=== PATIENT | male | born 1955 | race Caucasian/White ===

== ENCOUNTER 2018-07-17 19:30 | Outpatient (CLI) | payer OTHER | END 2018-07-17 19:31 | disposition home or self-care (01) | LOC: SLEEPLAB 19:30 | PROVIDERS: ATTEND Otolaryngology Plastic Surgery within the Head & Neck | DX: G47.33 Obstructive sleep apnea (adult) (pediatric) (principal); R53.83 Other fatigue; R06.81 Apnea, not elsewhere classified; R06.83 Snoring; G47.10 Hypersomnia, unspecified; G47.00 Insomnia, unspecified; I10 Essential (primary) hypertension; E11.9 Type 2 diabetes mellitus without complications | CPT/HCPCS: 95811 ==

== ENCOUNTER 2019-07-25 17:12 | Inpatient (IN) | payer BC ==
[2019-07-25] MEDS ORDERED: Adacel (T-DAP) 0.5 ML SYRINGE ONE (17:52)
[2019-07-25 17:58] LABS: #Eosinphils 0.1 thou/uL (0.0-0.7); #Lymphocytes 0.4 thou/uL (1.20-3.40); #Monocytes 0.5 thou/uL (0.11-0.59); #Neutrophils 7.6 thou/uL (1.40-6.50); %Basophils 0.5 % (0.0-1.0); %Eosinophils 0.7 % (0.0-10.0); %Lymphocytes 4.3 % (21.0-51.0); %Monocytes 6.3 % (0.0-10.0); %Neutrophils 88.3 % (42.0-75.0); Mean Corpuscular HGB CONC 32.8 g/dL (32.0-36.0); Mean Corpuscular Hemoglobin 30.7 pg (27.0-31.0); Mean Corpuscular Volume 93.6 fL (78.0-98.0); RBC Distribution Width 11.4 % (11.5-14.5); Red Blood Cell (RBC) Count 4.88 mill/uL (4.70-6.10); White Blood Cell (WBC) Count 8.6 thou/uL (4.8-10.8)
[2019-07-25 18:05] LABS: INR-International Normal Ratio 1.1; PTT 20.9 SEC (22.9-36.1); Prothrombin Time 13.7 SEC (12.0-14.7)
--- NOTE | 2019-07-25 18:09 | CT ---
CT BRAIN WITHOUT CONTRAST: HISTORY: Fall, headache. Possible syncope FINDINGS: No evidence of acute infarct, hemorrhage, midline shift or abnormal extra-axial fluid collections is seen. The ventricular size is appropriate and the basilar cisterns are patent. The bony calvarium is intact. There is mucosal disease in the paranasal sinuses.. There is a fracture involving the left nasal bone. IMPRESSION: No CT evidence of acute intracranial process.
[2019-07-25 18:14] LABS: ALT (SGPT) 20 U/L (8-55); AST (SGOT) 29 U/L (5-34); Albumin 4.3 g/dL (3.4-4.8); Alkaline Phosphatase 47 U/L (40-110); Anion Gap 16 mmol/L (10-20); BUN (Urea Nitrogen) 14 mg/dL (8.4-25.7); Bilirubin, Total 0.5 mg/dL (0.2-1.2); CK (CPK) 150 U/L (30-200); Calc. Creatinine Clearance 0 mL/min (70-130); Carbon Dioxide 25 mmol/L (23-31); Chloride 102 mmol/L (98-107); Estimated GFR-MDRD 64; Globulin 2.7 g/dL (2.4-3.5); Glucose 160 mg/dL (80-115); Potassium 4.7 mmol/L (3.5-5.1); Sodium 138 mmol/L (136-145)
[2019-07-25 18:16] LABS: Mean Platelet Volume 8.8 fL (7.4-10.4); Platelet Count 130 thou/uL (130-400); Platelet Morphology Comment Appears Adequate; RBC Morphology Normal
--- NOTE | 2019-07-25 18:22 | CT ---
CT CERVICAL SPINE WITH CORONAL AND SAGITTAL REFORMATIONS AND NO IV CONTRAST: HISTORY: Fall, neck pain FINDINGS: Multilevel degenerative changes are present. No fracture, subluxation or facet malalignment is identified. No prevertebral soft tissue swelling is apparent. The visualized lung apices are unremarkable. IMPRESSION: No CT evidence for fracture or traumatic subluxation.
--- NOTE | 2019-07-25 18:27 | CT ---
CT FACIAL BONES WITH CORONAL AND SAGITTAL REFORMATIONS: 07/25/19 HISTORY: Trauma. Facial pain. FINDINGS/IMPRESSION: There are minimally displaced fractures involving the nasal bones in the perpendicular plate of the e thmoid. The remainder of the facial bones are otherwise intact. No temporomandibular dislocation is seen. There is mucosal disease in the paranasal sinuses and a tiny amount of fluid in the left maxillary si nus. There is soft tissue air anterior to the anterior wall of the left maxillary sinus. POS: OFF
--- NOTE | 2019-07-25 18:33 | RAD ---
XR Chest 1 View Portable HISTORY: Syncope COMPARISON: None FINDINGS: The heart size is normal. The lungs are well expanded without focal areas of consolidation, pneumothorax or pleural effusions. IMPRESSION: No radiographic evidence of acute cardiopulmonary process.
[2019-07-25 18:38] LABS: Bacteria/HPF None Seen HPF (None Seen); Bilirubin Negative (Negative); Blood, Urine 1+ (Negative); Clarity Clear (Clear); Glucose, Urine (Dipstick) Normal (Negative); Leukocyte Negative Leu/uL (Negative); Nitrite Negative (Negative); Protein, Urine (Dipstick) 20 mg/dL (Neg-Trace); RBC/HPF 0-3 HPF (0-3); Squamous Epithelial 0-3 HPF (0-3); Urobilinogen Normal mg/dL (Less than 2); WBC/HPF 0-3 HPF (0-3)
[2019-07-25] MEDS ORDERED: Sodium Chloride 0.9% 100 ML ONE (19:42)
[2019-07-25] MEDS ORDERED: Cefepime 2 GM VIAL ONE (19:42)
[2019-07-25] MEDS ORDERED: Dextrose 5% in Water 1,000 ML IV PRN (21:12)
[2019-07-25] MEDS ORDERED: HumaLOG 300 UNITS/3 ML VIAL SC PRN (21:12)
[2019-07-25] MEDS ORDERED: Dextrose 50% Abboject 50 ML SYRINGE SLOW IVP PRN (21:12)
[2019-07-25 21:15] LABS: Lactic Acid 1.6 mmol/L (0.5-2.2)
[2019-07-25 21:25] LABS: Troponin I Less than 0.010 ng/mL (< 0.028)
--- NOTE | 2019-07-25 22:25 | PDOC.EVN ---
Event Note - Event Note Event Note: [id number] HP
[2019-07-25] MEDS ORDERED: Ondansetron PF 4 MG/2 ML Vial IVP PRN (22:31)
[2019-07-25] MEDS ORDERED: Ondansetron ODT 4 MG TAB SL PRN (22:31)
[2019-07-25 23:43] VITALS: BMI 29.0
[2019-07-25] MEDS ORDERED: Acetaminophen 650 MG Suppository PR PRN (23:51)
[2019-07-26 00:26] LABS: Troponin I 0.043 ng/mL (< 0.028)
[2019-07-26] MEDS: Acetaminophen 325 MG TAB PO PRN ×4 (00:42→19:28)
[2019-07-26] MEDS: Sodium Chloride 0.9% 1,000 ML IV SCH ×2 (00:43→16:59)
--- NOTE | 2019-07-26 03:15 | HP ---
CHIEF COMPLAINT: Suspected fall. HISTORY OF PRESENT ILLNESS: Mr. Gordon is a 63-year-old male with past medical history of diabetes mellitus, type 2; hypertension; and hyperlipidemia, presented to the emergency room via EMS for evaluation of suspected fall and possible syncope. The patient was at earlier today. He felt sick. He drove back home. After that, he does not remember what happened. EMS reported upon arrival to patient's residence, they found blood in the driveway, suspected that the patient had fallen, syncopized, then crawled into the house. Family reports that she was in her bedroom upstairs, when the patient returned home and noted that the patient was uncoherent after collapsed episode. The patient recalls no recollection of the fall. The patient presents with abrasion on the forehead, cheek, hands, obvious nasal bleeding per EMS. Denies abdominal pain. Workup in the emergency room including imaging studies; the patient was found to have nasal bone fracture. Otherwise, no acute fracture as per ED physician. The patient is being admitted to hospital for further management. PAST MEDICAL HISTORY: 1. Diabetes mellitus, type 2. 2. Hyperlipidemia. 3. Hypertension. PAST SURGICAL HISTORY: None reported. FAMILY HISTORY: Reviewed and noncontributory. SOCIAL HISTORY: The patient currently uses tobacco, smokes cigars, denies alcohol drinking. HOME MEDICATIONS: Please see home medication reconciliation form for updated medications. ALLERGIES: NO KNOWN ALLERGIES. PHYSICAL EXAMINATION: GENERAL: The patient is awake, alert, in moderate distress. VITAL SIGNS: Blood pressure 132/78, pulse is 115, respiratory rate is 20, and temperature is 100.4. HEAD AND NECK: Normocephalic. Nasal deformity. Neck is supple. No JVD. CHEST: Fair bilateral air entry. HEART: S1, S2. Regular. ABDOMEN: Soft, nontender. Bowel sounds present. NEUROLOGIC: Awake, alert, oriented x3. PSYCH: Normal mood. EXTREMITIES: No clubbing, no cyanosis. ENT: Dried blood noted to bilateral nares, nasal deformity. There are abrasions, facial, around the eyes and abrasions, lower extremity. LABORATORY DATA: EKG shows sinus tachycardia. IMAGING DATA: Facial bone CT showed displaced fracture noted to the nasal bones. Tiny fluid in the left maxillary sinus. Otherwise, imaging studies including CT of the cervical spine and CT of the neck; no acute finding. ASSESSMENT: 1. Fall, syncope? 2. Nasal bone fracture. 3. Syncope? 4. Fever, etiology not clear at this point. 5. Diabetes mellitus. 6. Hypertension. 7. Hyperlipidemia. PLAN: 1. Admit. 2. Telemetry monitoring. 3. Frequent neuro checks. 4. Septic workup including blood cultures. 5. Empiric IV antibiotics for now. 6. 2D echo. 7. MRI of the brain. 8. Consider Neurology consultation and Cardiology consultation in a.m. for evaluation and further recommendations. 9. Reconcile home medications. 10. DVT prophylaxis as appropriate. 11. Expected length of stay, 2 midnights or more. Job ID: [id number]
[2019-07-26 04:56] LABS: Cardiac Risk 2.2 (Less than 4.5)
--- NOTE | 2019-07-26 10:22 | MRI ---
EXAM: MRI Brain WO Con PROVIDED CLINICAL HISTORY: Dizziness/syncope COMPARISON: None FINDINGS: The ventricular system appears normal in size and morphology. There is no evidence for intracranial h emorrhage or mass effect. There is no evidence for restricted diffusion to suggest recent infarction. Scattered punctate areas of FLAIR and T2 hyperintensity involve the cerebral white matter likely reflecting chronic microvascular ischemic change. Appropriate flow voids are seen within the major intracranial vessels. There is partial opacification of the ethmoid air cells, left maxillary sinus and mucosal thickening involving sphenoid, frontal and right maxillary sinuses. The extracranial soft tissues and calvarial marrow signal appear otherwi se normal. IMPRESSION: No evidence for an acute intracranial abnormality.
[2019-07-26] MEDS: Cefepime 1 GM in Sodium Chloride 0.9% 100 ML IVPB SCH ×2 (10:32→20:34)
--- NOTE | 2019-07-26 11:13 | CON ---
DATE OF CONSULTATION: 07/26/2019 CONSULTING PHYSICIAN: Hospitalist Service. IMPRESSION: Syncopal episode, possibly secondary to an unwitnessed seizure versus cardiac arrhythmia. PLAN: Follow up with Cardiology for an event monitor. HISTORY OF PRESENT ILLNESS: Mr. Gordon is a 63-year-old male with past history of diabetes. He is followed by Dr. Horvath. He had driven home and gotten out of the car, he apparently lost consciousness suddenly without any warning. He fell on the pavement of his driveway. About 10 minutes later, his found him in the bedroom, he was a bit incoherent, he was covered in blood, he could not recall what had happened. She decided to call EMS, and they came in and picked him up. He was brought to the emergency room for evaluation. He had a CT of the brain, which was unremarkable. He had an MRI done this morning, which has not been read out, but appears normal to me. He denies any past history of seizures or cardiac arrhythmia. He does not recall any chest pain, chest pressure, or palpitations. He did not have any focal neurologic symptoms associated with the episode. He had been sick with upper respiratory illness prior to the onset. He had gone without sleep the night before secondary to coughing. He was taking some type of vuio-ibx-tpouwdy cold medication. He notes that he did not have his typical symptoms of hypoglycemia prior to the onset. PAST HISTORY: Diabetes. ALLERGIES: NONE. SOCIAL HISTORY: No tobacco or illicit drug use. FAMILY HISTORY: Noncontributory. MEDICATION LIST: Reviewed. PHYSICAL EXAMINATION: GENERAL: He is a healthy-appearing middle-aged man, in no acute distress. VITAL SIGNS: Blood pressure 112/62, pulse 64, respirations 20, and temperature 99.9. HEENT: There are several abrasions on the left side of the face. Remainder of his exam was unremarkable. NECK: Supple. EXTREMITIES: No cyanosis, clubbing, or edema. NEUROLOGIC: He was alert and cooperative. His speech is fluent and clear. His exam was nonfocal. No abnormal movements were seen. LABORATORY STUDIES: White blood cell count 8.6 and hemoglobin 15. Coags were in normal range. Lactic acid was 2.3. Cholesterol ratio of 2.2. Urinalysis was clear. MRI images were reviewed and appear unremarkable. SUMMARY: This is a 63-year-old man with blackout and some prolonged confusion. It could have had an unwitnessed seizure. Given that his workup is negative thus far, we would not start him on anticonvulsants. It may have been related to his ongoing viral illness and sleep deprivation. I would be happy to follow up with him as an outpatient. Job ID: [id number]
[2019-07-26] MEDS: Vancomycin HCl 1 GM in Premix Bag 1 BAG IVPB SCH ×2 (11:23→20:35)
--- NOTE | 2019-07-26 13:38 | PDOC.HOSPP ---
- Subjective Encounter Date: 07/26/19 Encounter Time: 13:37 Subjective: Mr. Gordon was seen today in follow-up of syncope. He does not have any complaints this afternoon. He is asking about going home. - Objective Vital Signs & Weight: Vital Signs (12 hours) Temp Pulse Resp BP Pulse Ox 07/26/19 11:09 100.1 F H 70 16 109/64 94 L 07/26/19 07:44 99.9 F H 64 20 112/62 92 L 07/26/19 07:40 92 L 07/26/19 03:26 99.9 F H 74 14 118/67 96 Weight Weight 208 lb 8 oz I&O: 07/25/19 07/26/19 07/27/19 06:59 06:59 06:59 Intake Total 600 Balance 600 Result Diagrams: 07/25/19 17:42 07/25/19 17:42 Additional Labs: Accuchecks 07/26/19 07/26/19 11:14 05:52 POC Glucose 244 H 122 H Hospitalist ROS - Medication Medications: Active Medications Generic Name Dose Route Start Last Admin Trade Name Freq PRN Reason Stop Dose Admin Acetaminophen 650 mg 07/25/19 23:51 07/26/19 08:59 Tylenol PO 650 mg Q4H PRN Administration Headache/Fever or Pain Sodium Chloride 1,000 mls @ 75 mls/hr 07/25/19 21:15 07/26/19 00:43 Normal Saline 0.9% IV 1,000 mls .[id number] JUSTIN Administration Cefepime HCl 1 gm/ Sodium 100 mls @ 200 mls/hr 07/26/19 08:00 07/26/19 10:32 Chloride IVPB 100 mls 0800,2000 JUSTIN Administration Vancomycin HCl 1 gm/ Device 200 mls @ 200 mls/hr 07/26/19 09:00 07/26/19 11: 23 IVPB 200 mls Q12HR JUSTIN Administration - Exam Eye: PERRL ENT - other findings: + bruising on the left forhead and face, and some facial swelling as well Neck: no JVD, no lymphadenopathy, no carotid bruit Heart: RRR, no murmur, no gallops, no rubs, normal peripheral pulses Respiratory: CTAB, no wheezes, no rales, no ronchi, normal chest expansion Gastrointestinal: soft, non-tender, non-distended, normal bowel sounds, no palpable masses, no hepatomegaly Extremities: no cyanosis, no clubbing, no edema Neurological: no focal deficits Psychiatric: normal affect, A&O x 3 Hosp A/P (1) Syncope Code(s): R55 - SYNCOPE AND COLLAPSE Status: Acute (2) Hypertension Code(s): I10 - ESSENTIAL (PRIMARY) HYPERTENSION Status: Chronic (3) Diabetes mellitus type 2 in nonobese Code(s): E11.9 - TYPE 2 DIABETES MELLITUS WITHOUT COMPLICATIONS Status: Chronic (4) Dyslipidemia Code(s): E78.5 - HYPERLIPIDEMIA, UNSPECIFIED Status: Chronic - Plan * Syncope- ? etiology- Neurology evaluation noted- This could have been a seizure * He has several risk factors for CAD- will therefore consult Cardiology prior to discharge * Will also check orthostatic vital signs * HTN- blood pressure is stable * DM- blood glucose is also stable * fever- will check a respiratory panel
--- NOTE | 2019-07-26 15:17 | CON ---
DATE OF CONSULTATION: 07/26/2019 REASON FOR CONSULTATION: Syncope. HISTORY OF PRESENT ILLNESS: Mr. Gordon is a very pleasant 63-year-old gentleman who is a patient of Dr. Zakiya Horvath. He recently presented with 2 syncopal episodes. He states he was in his driveway and passed out. He was not able to break his fall. He has significant abrasions noted to the left side of his face. No chest pain pressure noted. He is diabetic, but states the blood sugar was in the 120s. Blood pressure is also stable. No previous history of CAD. He also states he did not feel dehydrated. CURRENT MEDICATIONS: Include: 1. Enalapril. 2. Metformin. 3. Rosuvastatin. PAST MEDICAL HISTORY: Hyperlipidemia, hypertension, and diabetes mellitus. PAST SURGICAL HISTORY: None. FAMILY HISTORY: Negative for CAD. ALLERGIES: NONE. RECENT HOSPITALIZATIONS: None. REVIEW OF SYSTEMS: A 10-point review of systems is reviewed and as above, negative. PHYSICAL EXAMINATION: GENERAL: Patient is a pleasant male, who is in no acute distress. The patient appears their stated age. VITAL SIGNS: Blood pressure 109/64, pulse 70, and temperature 100.1. NEUROLOGIC: The patient is alert and oriented x3 with no focal neurologic deficits. HEENT: Significant abrasions on the left side of his face. NECK: No JVD. Carotid upstroke brisk. No bruits bilaterally. LUNGS: Clear to auscultation with unlabored respirations. BACK: No scoliosis or kyphosis. CARDIAC: Regular rate and rhythm with normal S1 and S2. No S3 or S4 noted. No significant rubs, murmurs, thrills, or gallops noted throughout the precordium. PMI is not displaced. There is no parasternal heave. ABDOMEN: Soft, nontender, nondistended. No peritoneal signs present. No hepatosplenomegaly. No abnormal striae. EXTREMITIES: 2+ femoral and 2+ dorsalis pedis pulses. No cyanosis, clubbing, or edema. SKIN: No gross abnormalities. PERTINENT LABORATORY DATA: Hemoglobin 15, hematocrit 45.6. Peak troponin 0.043. EKG, normal sinus rhythm, normal EKG. MRI, no evidence of acute intracranial abnormalities. Facial bones CT with mucosal disease in paranasal sinuses. Chest x-ray negative. IMPRESSION: 1. Rodger syncope. 2. Diabetes mellitus. 3. Hypertension. 4. Hyperlipidemia. RECOMMENDATIONS: Current etiology is unknown. There is certainly concern for rodger syncope, not able to break his fall. His EKG and enzymes are within normal limits. At this point, we will continue to monitor on telemetry monitoring. We will recommend a noninvasive stress study to assess for any areas of ischemia as the precipitating event. EKG also within normal limits. Madhav CHU for seizure as well. He does have risk factor for underlying coronary artery disease. We would also recommend echo Doppler and we will review. May benefit from EP study versus a 3-week event recorder. Job ID: [id number] MTDD
[2019-07-26] MEDS ORDERED: Oseltamivir 75 MG CAP PO SCH (22:15)
[2019-07-27] MEDS: Sodium Chloride 0.9% 1,000 ML IV SCH ×2 (05:28→09:17)
[2019-07-27 07:48] VITALS: BP 131/77; TEMP 99.1
[2019-07-27] MEDS ORDERED: Oseltamivir 75 MG CAP PO SCH (09:00)
[2019-07-27] MEDS: Acetaminophen 325 MG TAB PO PRN (09:19)
[2019-07-27] MEDS: Cefepime 1 GM in Sodium Chloride 0.9% 100 ML IVPB SCH (09:20)
--- NOTE | 2019-07-27 09:54 | PDOC.CPN ---
- Subjective Date: 07/27/19 Time: 09:52 Interval history: No new complaints. Tele normal overnight. - Review of Systems General: reports: fatigue. denies: fever/chills, weight/appetite/sleep changes , night sweats Respiratory: reports: cough. denies: congestion, shortness of breath, exercise intolerance Cardiovascular: denies: chest pain, palpitation, edema, paroxysmal nocturnal dyspnea, orthopnea Neurological: reports: weakness - Objective Allergies/Adverse Reactions: Allergies Allergy/AdvReac Type Severity Reaction Status Date / Time No Known Drug Allergies Allergy Verified 07/25/19 23:39 Visit Medications: Current Medications Acetaminophen (Tylenol) 650 mg PO Q4H PRN PRN Reason: Headache/Fever or Pain Last Admin: 07/27/19 09:19 Dose: 650 mg Acetaminophen (Tylenol) 650 mg PA Q4H PRN PRN Reason: Headache/Fever or Pain Dextrose/Water (Dextrose 50%) 25 gm SLOW IVP PRN PRN PRN Reason: Hypoglycemia Glucagon (Glucagon) 1 mg IM PRN PRN PRN Reason: Hypoglycemia Sodium Chloride (Normal Saline 0.9%) 1,000 mls @ 75 mls/hr IV .[id number] [facility] Last Admin: 07/27/19 09:17 Dose: 1,000 mls Dextrose/Water (D5w) 1,000 mls @ 0 mls/hr IV .Q0M PRN PRN Reason: Hypoglycemia Cefepime HCl 1 gm/ Sodium (Chloride) 100 mls @ 200 mls/hr IVPB 0800,2000 [facility] Last Admin: 07/27/19 09:20 Dose: 100 mls Vancomycin HCl 1 gm/ Device 200 mls @ 200 mls/hr IVPB Q12HR [facility] Last Admin: 07/26/19 20:35 Dose: 200 mls Insulin Human Lispro (Humalog) 0 units SC .MILD SLIDING SCALE PRN PRN Reason: Mild Correctional Scale Oseltamivir Phosphate (Tamiflu) 75 mg PO BID [facility] Stop: 07/31/19 09:01 Last Admin: 07/27/19 09:19 Dose: 75 mg Sodium Chloride (Flush - Normal Saline) 10 ml IVF PRN PRN PRN Reason: Saline Flush Vital Signs & Weight: Vital Signs Temp Pulse Resp BP BP Pulse Ox 07/27/19 07:47 99.1 F 73 16 131/77 92 L 02/09/20 04:00 98.8 F 82 18 154/91 H 94 L 07/26/19 23:55 98.1 F 70 18 153/79 H 95 Admit Weight 208 lb 8 oz Weight 208 lb 8 oz - Physical Exam General: alert & oriented x3, appears well HEENT: mucus membranes moist, EOMI, other (left facial abrasions) Neck: no masses Cardiac: regular rate and rhythm Lungs: clear to auscultation Neuro: grossly intact Abdomen: soft Extremities: no cyanosis, no clubbing Skin: clear Musculoskeletal: normal range of motion - Labs Result Diagrams: 07/25/19 17:42 07/25/19 17:42 Troponin/CKMB Troponin I 0.043 ng/mL (< 0.028) H 07/25/19 23:45 - Assessment/Plan Assessment/Plan: 1. Syncopal episode unknown etiology 2. Influenza A EKG, tele and ECHO WNL. Discussed options with patient including staying to complete stress test or discharge with outpatient appt this week and further work-up. He chooses to go home today. Advised no driving. Will call and see this week in the office.
[2019-07-27] MEDS: Vancomycin HCl 1 GM in Premix Bag 1 BAG IVPB SCH (10:24)
--- NOTE | 2019-07-27 10:55 | PDOC.HOSPP ---
- Subjective Encounter Date: 07/27/19 Encounter Time: 10:49 Subjective: Mr. Gordon was seen today in follow-up of syncope. He does not have any complaints. - Objective Vital Signs & Weight: Vital Signs (12 hours) Temp Pulse Resp BP BP Pulse Ox 07/27/19 07:47 99.1 F 73 16 131/77 92 L 07/27/19 04:00 98.8 F 82 18 154/91 H 94 L 07/26/19 23:55 98.1 F 70 18 153/79 H 95 Weight Admit Weight 208 lb 8 oz Weight 208 lb 8 oz I&O: 07/26/19 07/27/19 07/28/19 06:59 06:59 06:59 Intake Total 2500 Balance 2500 Result Diagrams: 07/25/19 17:42 07/25/19 17:42 Additional Labs: Accuchecks 07/27/19 07/26/19 07/26/19 06:30 20:19 16:35 POC Glucose 127 H 155 H 113 H 07/26/19 11:14 POC Glucose 244 H Hospitalist ROS - Medication Medications: Active Medications Generic Name Dose Route Start Last Admin Trade Name Freq PRN Reason Stop Dose Admin Acetaminophen 650 mg 07/25/19 23:51 07/27/19 09:19 Tylenol PO 650 mg Q4H PRN Administration Headache/Fever or Pain Sodium Chloride 1,000 mls @ 75 mls/hr 07/25/19 21:15 07/27/19 09:17 Normal Saline 0.9% IV 1,000 mls .[id number] JUSTIN Administration Cefepime HCl 1 gm/ Sodium 100 mls @ 200 mls/hr 07/26/19 08:00 07/27/19 09:20 Chloride IVPB 100 mls 0800,2000 JUSTIN Administration Vancomycin HCl 1 gm/ Device 200 mls @ 200 mls/hr 07/26/19 09:00 07/27/19 10: 24 IVPB Not Given Q12HR JUSTIN Oseltamivir Phosphate 75 mg 07/27/19 09:00 07/27/19 09:19 Tamiflu PO 07/31/19 09:01 75 mg BID JUSTIN Administration - Exam Eye: PERRL (+ bruising on the left side of the face) Heart: RRR, no murmur, no gallops, no rubs, normal peripheral pulses Respiratory: CTAB, no wheezes, no rales, no ronchi, normal chest expansion, no tachypnea, normal percussion Gastrointestinal: soft, non-tender, non-distended, normal bowel sounds, no palpable masses, no hepatomegaly Extremities: no cyanosis, no edema Hosp A/P (1) Syncope Code(s): R55 - SYNCOPE AND COLLAPSE Status: Acute (2) Hypertension Code(s): I10 - ESSENTIAL (PRIMARY) HYPERTENSION Status: Chronic (3) Diabetes mellitus type 2 in nonobese Code(s): E11.9 - TYPE 2 DIABETES MELLITUS WITHOUT COMPLICATIONS Status: Chronic (4) Dyslipidemia Code(s): E78.5 - HYPERLIPIDEMIA, UNSPECIFIED Status: Chronic - Plan * Syncope- ? etiology * Cardiology and Neurology input appreciated * Plan is for out patient stress test, once he has recovered from the flu * He is stable for discharge
--- NOTE | 2019-07-27 14:50 | DIS ---
DATE OF ADMISSION: 07/25/2019 DATE OF DISCHARGE: 07/27/2019 PRIMARY CARE PHYSICIAN: Burke Rushing MD DISCHARGE DISPOSITION: Home. DISCHARGE DIAGNOSES: 1. Syncope. 2. Diabetes mellitus, type 2. 3. Hypertension. 4. Probable orthostatic hypotension. 5. Influenza A infection. DISCHARGE MEDICATIONS: Include; 1. Tamiflu 75 mg p.o. twice a day for 4 more days. 2. Crestor 10 mg at bedtime. 3. Metformin 500 mg at bedtime. 4. Enalapril 20 mg at bedtime. IMAGING DONE DURING HOSPITAL STAY: The patient had a CT scan of the brain, in which there was no evidence of intracranial process. The patient had an echocardiogram in which the EF was estimated at 55% to 60%. The left atrium was moderately dilated. The patient had an MRI of the brain in which there was no evidence for any acute intracranial abnormality. The patient had a CT scan of the cervical spine showing no fracture or subluxation and CT scan of the facial bones. There were minimally displaced fractures of the nasal bones in the perpendicular plate of the ethmoid. The remainder of the facial bones are intact. CODE STATUS: Full code. ALLERGIES: NO KNOWN DRUG ALLERGIES. HISTORY: Mr. Gordon is a pleasant 63-year-old gentleman, who suffered a syncopal episode at home. He does admit that he was having symptoms of fever and generally not doing very well. He apparently had fallen and family found him, apparently he had fallen on the driveway, where they noticed blood there. He was brought into the hospital. CT scan of the brain was done, which was negative as well as a C-spine. He did have some mildly displaced fractures of the facial bones as previously mentioned. An echocardiogram was done for workup as well as an MRI. The MRI did not show any evidence of stroke and the echocardiogram demonstrated an EF of 55% to 60%. There was some moderate dilatation of the left atrium. HOSPITAL COURSE: Mr. Gordon is a pleasant 63-year-old gentleman, who presented to the emergency room after having a syncopal episode at home. He was admitted and evaluated and seen by Cardiology as well as Neurology. It was unclear of the etiology of the event. If he did have a seizure, it was a single seizure and there was no need to place him on any type of antiepileptic medicine and Cardiology workup was recommended. He underwent echocardiogram and the plan would be for him to undergo a stress test. However, during this time, it was discovered that he had influenza A infection and for this reason, we will hold off on doing the stress test and this will be pursued in the outpatient setting with Dr. Livingston and he will be discharged home on Tamiflu. He is to follow up with Dr. Rushing in approximately 1 week and also with Dr. Livingston as recommended. Job ID: [id number]
--- NOTE | 2019-07-30 09:39 | PQF ---
KODAK HARDY TONI MD [id number] [facility] [id number] CLINICAL DOCUMENTATION CLARIFICATION FORM: POST DISCHARGE Addendum to original discharge summary date: ____ Late entry note date: __ DATE: 07/30/2019 ATTN:RON PICHARDO MD Please exercise your independent, professional judgment in responding to the clarification form. Clinical indicators are provided on the bottom of this form for your review Please check appropriate box(s) to clarify if the following diagnosis has been ruled in or ruled out: Sepsis [ X ] Ruled in diagnosis [ X ] Continue to treat [ ] Resolved [ ] Ruled out diagnosis [ ] Cannot rule out diagnosis [ ] Other diagnosis [ ] Unable to determine For continuity of documentation, please document condition throughout progress notes and discharge summary. Thank You. CLINICAL INDICATORS - SIGNS / SYMPTOMS / LABS [id number] in ED on 07/25 by John Orozco [id number] in ED on 07/25 by John Orozco Patient febrile, Temperature of 100.4, Tachycardia-Documented in ED on 07/25 by John Orozco Sepsis unknown source--Documented in ED on 07/25 by John Orozco Influenza A infection -Documented in Discharge summary on 07/27 by Antonio Geller RISK FACTORS Influenza A infection -Documented in Discharge summary on 07/27 by Antonio Geller TREATMENTS Septic workup including blood cultures-Documented in H&P on 07/25 by Rosalba Spencer Empiric IV antibiotics for now-Documented in H&P on 07/25 by Rosalba Spencer [employer] Winform Viewer (This form is maintained as a part of the permanent medical record) 2014 [employer]. All Rights Reserved [email or web address] [phone] [email or web address]
== END 2019-07-27 11:34 | disposition home or self-care (01) | DRG 872 ==
LOC: ERS 17:12 → 2SE 21:14
PROVIDERS: ADMIT Internal Medicine; ATTEND Internal Medicine
DX: A41.9 Sepsis, unspecified organism (principal); R55 Syncope and collapse; E11.9 Type 2 diabetes mellitus without complications; I10 Essential (primary) hypertension; I95.1 Orthostatic hypotension; J10.1 Influenza due to other identified influenza virus with other respiratory manifestations; E78.5 Hyperlipidemia, unspecified; F17.290 Nicotine dependence, other tobacco product, uncomplicated; S02.2XXA Fracture of nasal bones, initial encounter for closed fracture; W18.39XA Other fall on same level, initial encounter; Y93.89 Activity, other specified; Y92.099 Unspecified place in other non-institutional residence as the place of occurrence of the external cause
CPT/HCPCS: 36415; 36416; 70450; 70486; 70551; 71045; 72125; 80053; 80061; 81003; 81015; 82550; 83605; 84484; 85025; 85610; 85730; 86850; 86900; 86901; 87040; 87086; 87633; 87804; 90471; 90715; 93005; 93306; 96361; 96365; 96375; J0692; J3370; J3490

== ENCOUNTER 2025-05-08 14:23 | Outpatient (CLI) | payer MEDICARE ==
[2025-05-08 15:20] LABS: #Basophils 0.08 10x3/uL (0.0-0.2); #Eosinophils 0.16 10x3/uL (0.0-0.7); #Monocytes 0.58 10x3/uL (0.11-0.59); #Neutrophils 6.38 10x3/uL (1.40-6.50); %Basophils 0.9 % (0.0-1.0); %Eosinophils 1.8 % (0.0-10.0); %Lymphocytes 20.5 % (21.0-51.0); %Monocytes 6.4 % (0.0-10.0); %Neutrophils 70.2 % (42.0-75.0); Hematocrit 44.0 % (42.0-52.0); Hemoglobin 14.0 g/dL (14.0-18.0); Mean Corpuscular Hemoglobin 29.9 pg (27.0-31.0); Mean Corpuscular Volume 93.8 fL (78.0-98.0); Platelet Count 213 10x3/uL (130-400); Red Blood Cell (RBC) Count 4.69 mill/uL (4.70-6.10); White Blood Cell (WBC) Count 9.08 10x3/uL (4.8-10.8)
[2025-05-08 15:35] LABS: Anion Gap 12 mmol/L (10-20); BUN (Urea Nitrogen) 21 mg/dL (8.4-25.7); Calc. Creatinine Clearance 0 mL/min (70-130); Calcium 9.0 mg/dL (7.8-10.44); Carbon Dioxide 26 mmol/L (23-31); Chloride 104 mmol/L (98-107); Glucose 152 mg/dL (80-115); Potassium 4.3 mmol/L (3.5-5.1); Sodium 138 mmol/L (136-145)
== END 2025-05-08 14:24 | disposition home or self-care (01) ==
LOC: LABBT 14:23
PROVIDERS: ATTEND Internal Medicine Cardiovascular Disease
DX: Z01.812 Encounter for preprocedural laboratory examination (principal); I63.9 Cerebral infarction, unspecified
CPT/HCPCS: 80048; 85025

== ENCOUNTER 2025-05-11 05:58 | Day surgery (SDC) | payer MEDICARE ==
[2025-05-08 14:40] VITALS: BMI 28.5
[2025-05-11] MEDS ORDERED: Ketamine In 0.9 % NaCl 50 MG/5 ML SYRINGE ONE (07:15)
== END 2025-05-11 08:38 | disposition home or self-care (01) ==
LOC: SDC 05:58
PROVIDERS: ATTEND Internal Medicine Cardiovascular Disease
PROC: B24BZZ4 Ultrasonography of Heart with Aorta, Transesophageal (ICD-10-PCS; principal; 2025-05-11)
DX: R55 Syncope and collapse (principal); I08.1 Rheumatic disorders of both mitral and tricuspid valves; I10 Essential (primary) hypertension; E11.9 Type 2 diabetes mellitus without complications; E78.00 Pure hypercholesterolemia, unspecified; F17.210 Nicotine dependence, cigarettes, uncomplicated; Z86.73 Personal history of transient ischemic attack (TIA), and cerebral infarction without residual deficits; Z79.84 Long term (current) use of oral hypoglycemic drugs; Z79.899 Other long term (current) drug therapy
CPT/HCPCS: 93312; J2250; J3490